=== PATIENT | female | born 2000 | race African-American/Black ===

== ENCOUNTER 2021-10-12 10:00 | Emergency (ER) | payer OTHER ==
[2021-10-12 10:08] VITALS: BP 108/71; PULSE 126; TEMP 98.7; BMI 31.6
[2021-10-12] MEDS ORDERED: ACETAMINOPHEN INJECTION 100 ML IVPB ONE (10:58)
[2021-10-12] MEDS ORDERED: ONDANSETRON 4 MG/2 ML VIAL ONE (10:58)
[2021-10-12] MEDS ORDERED: SODIUM CHLORIDE 0.9% 500 ML INFUS.BAG IV ONE ×2 (11:02→12:20)
[2021-10-12] MEDS ORDERED: ONDANSETRON 4 MG/2 ML VIAL IVPUSH ONE (11:03)
[2021-10-12] MEDS ORDERED: ACETAMINOPHEN 1000 MG/100 ML BAG IVPB ONE (11:03)
[2021-10-12 11:40] LABS: BASO % 0.3 % (0-2.0); HEMATOCRIT 40.3 % (32.4-45.2); HEMOGLOBIN 13.5 GM/dL (10.7-15.3); LYMPH % 4.2 % (8-40); MCHC 33.6 g/dl (32.0-36.0); MEAN CELL VOLUME 86.3 fl (80-96); MEAN PLT VOLUME 9.6 fl (7.5-11.1); MONO % 5.3 % (3.8-10.2); NEUT % 90.2 % (42.8-82.8); PLATELET COUNT 197 10^3/uL (134-434); RBC 4.67 M/mm3 (3.60-5.2); RDW 13.8 % (11.6-15.6); WHITE BLOOD COUNT 18.4 K/mm3 (4.0-10.0)
[2021-10-12 12:00] LABS: EPI CELLS >36 /uL (0-25.1); HYALINE CASTS 6 /uL (0-3.1); PH,URINE 5.5 (5.0-8.0); URINE APPEARANCE TURBID; URINE BACTERIA >9,000 /uL (0-1359); URINE BILIRUBIN 1+ (NEGATIVE); URINE COLOR DK YELLOW; URINE GLUCOSE (UA) NEGATIVE (NEGATIVE); URINE KETONE TRACE (NEGATIVE); URINE LEUK ESTERASE 1+ (NEGATIVE); URINE NITRITE POSITIVE (NEGATIVE); URINE PROTEIN 3+ (NEGATIVE); URINE RBC 27 /uL (0-23.9); URINE WBC 1167 /uL (0-25.8)
[2021-10-12 12:03] LABS: ALBUMIN 3.7 g/dl (3.4-5.0); BLOOD UREA NITROGEN 12.6 mg/dL (7-18); CALCIUM 8.9 mg/dL (8.5-10.1)
[2021-10-12 12:06] LABS: CREATININE 1.4 mg/dL (0.55-1.3)
[2021-10-12 12:08] LABS: BILIRUBIN,TOTAL 1.7 mg/dL (0.2-1); TOT PROT 8.1 g/dl (6.4-8.2)
[2021-10-12] MEDS ORDERED: CEFTRIAXONE 1 GM in DEXTROSE 5%-WATER - 100 ML IVPB ONE (12:16)
[2021-10-12] MEDS ORDERED: METOCLOPRAMIDE HCL INJECTION 10 MG/2 ML VIAL IVPUSH ONE (12:20)
[2021-10-12] MEDS ORDERED: CYCLOBENZAPRINE HCL 10 MG TABLET (FP) PO ONE (12:38)
[2021-10-12] MEDS ORDERED: KETOROLAC TROMETHAMINE 30 MG/1 ML VIAL IVPUSH ONE (12:44)
[2021-10-12] MEDS ORDERED: KETOROLAC TROMETHAMINE 30 MG/1 ML VIAL ONE (12:50)
[2021-10-12] MEDS ORDERED: METOCLOPRAMIDE HCL INJECTION 10 MG/2 ML VIAL ONE (12:50)
[2021-10-12] MEDS ORDERED: cefTRIAXone SODIUM 1 GM VIAL ONE (12:50)
[2021-10-12] MEDS ORDERED: CEFTRIAXONE 1 GM/50 ML BAG ONE (13:00)
== END 2021-10-12 16:55 | disposition home or self-care (01) ==
LOC: JER 10:00
PROC: 3E033GC Introduction of Other Therapeutic Substance into Peripheral Vein, Percutaneous Approach (ICD-10-PCS; principal; 2021-10-12)
DX: N12 Tubulo-interstitial nephritis, not specified as acute or chronic (principal); N39.0 Urinary tract infection, site not specified
CPT/HCPCS: 36415; 74176-TC; 80053; 81003; 83690; 84703; 85025; 87040; 87070; 87077; 87086; 87186; 87205; 87491; 87591; 99285-25

== ENCOUNTER 2021-10-13 15:02 | Emergency (ER) | payer OTHER ==
[2021-10-13 15:30] VITALS: BP 112/78; PULSE 99; TEMP 97.9; BMI 31.6
[2021-10-13] MEDS ORDERED: SODIUM CHLORIDE 0.9% 500 ML INFUS.BAG IV ONE (15:49)
[2021-10-13 16:50] LABS: BASO % 0.2 % (0-2.0); HEMATOCRIT 37.5 % (32.4-45.2); HEMOGLOBIN 12.6 GM/dL (10.7-15.3); LYMPH % 6.1 % (8-40); MCH 28.8 pg (25.7-33.7); MCHC 33.5 g/dl (32.0-36.0); MEAN PLT VOLUME 9.6 fl (7.5-11.1); MONO % 6.7 % (3.8-10.2); PLATELET COUNT 192 10^3/uL (134-434); RBC 4.37 M/mm3 (3.60-5.2); RDW 14.1 % (11.6-15.6); WHITE BLOOD COUNT 9.2 K/mm3 (4.0-10.0)
[2021-10-13 16:57] LABS: INR 1.32 (0.83-1.09); PROTHROMBIN TIME (PATIENT) 15.2 SEC (9.7-13.0)
[2021-10-13 16:59] LABS: ACTIVATED PTT 29.6 SECONDS (25.2-36.5)
[2021-10-13] MEDS ORDERED: METOCLOPRAMIDE HCL INJECTION 10 MG/2 ML VIAL IVPUSH ONE (17:03)
[2021-10-13 17:09] LABS: CHLORIDE 100 mmol/L (98-107); SODIUM 137 mmol/L (136-145)
[2021-10-13 17:11] LABS: ALBUMIN 3.2 g/dl (3.4-5.0); ANION GAP 10 MMOL/L (8-16); BLOOD UREA NITROGEN 10.2 mg/dL (7-18); CALCIUM 8.7 mg/dL (8.5-10.1); CO2 27 mmol/L (21-32)
[2021-10-13 17:12] LABS: GLUCOSE,RANDOM 104 mg/dL (74-106)
[2021-10-13 17:15] LABS: CREATININE 1.1 mg/dL (0.55-1.3); SGOT/AST 22 U/L (15-37); SGPT/ALT 32 U/L (13-61)
[2021-10-13 17:16] LABS: BILIRUBIN,TOTAL 1.5 mg/dL (0.2-1); TOT PROT 7.4 g/dl (6.4-8.2)
[2021-10-13] MEDS ORDERED: METOCLOPRAMIDE HCL INJECTION 10 MG/2 ML VIAL ONE (17:16)
[2021-10-13 17:17] LABS: ALK PHOS 92 U/L (45-117)
[2021-10-13 19:43] LABS: EPI CELLS >36 /uL (0-25.1); HYALINE CASTS 6 /uL (0-3.1); PH,URINE 6.5 (5.0-8.0); URINE APPEARANCE CLOUDY; URINE BACTERIA 779 /uL (0-1359); URINE BILIRUBIN 1+ (NEGATIVE); URINE COLOR DK YELLOW; URINE GLUCOSE (UA) NEGATIVE (NEGATIVE); URINE KETONE 1+ (NEGATIVE); URINE LEUK ESTERASE 2+ (NEGATIVE); URINE NITRITE NEGATIVE (NEGATIVE); URINE PROTEIN 2+ (NEGATIVE); URINE RBC 31 /uL (0-23.9); URINE UROBILINOGEN 4.0 E.U/dl mg/dL (0.2-1.0); URINE WBC 308 /uL (0-25.8)
== END 2021-10-13 20:42 | disposition home or self-care (01) ==
LOC: JER 15:02
PROC: 3E033GC Introduction of Other Therapeutic Substance into Peripheral Vein, Percutaneous Approach (ICD-10-PCS; principal; 2021-10-13)
PROC: 3E033NZ Introduction of Analgesics, Hypnotics, Sedatives into Peripheral Vein, Percutaneous Approach (ICD-10-PCS; 2021-10-13)
DX: N30.01 Acute cystitis with hematuria (principal)
CPT/HCPCS: 36415; 80053; 81003; 82550; 82553; 83605; 85025; 85610; 85730; 86850; 86900; 86901; 87040; 87086; 87186; 99284-25

== ENCOUNTER 2021-10-14 12:42 | Inpatient (IN) | payer OTHER ==
[2021-10-14] MEDS ORDERED: ACETAMINOPHEN 1000 MG/100 ML BAG IVPB ONE (13:27)
[2021-10-14] MEDS ORDERED: ONDANSETRON 4 MG/2 ML VIAL IVPUSH ONE (13:27)
[2021-10-14] MEDS ORDERED: LACTATED RINGERS SOLUTION 1000 ML INFUS.BAG IV ONE ×2 (13:27→16:31)
[2021-10-14] MEDS ORDERED: CEFTRIAXONE 1,000 MG in DEXTROSE 5%-WATER - 50 ML IVPB ONE (13:28)
[2021-10-14 13:53] LABS: BASO % 0.4 % (0-2.0); EOS % 0.3 % (0-4.5); HEMATOCRIT 34.6 % (32.4-45.2); HEMOGLOBIN 11.8 GM/dL (10.7-15.3); LYMPH % 9.3 % (8-40); MCHC 34.2 g/dl (32.0-36.0); MEAN CELL VOLUME 84.7 fl (80-96); MEAN PLT VOLUME 9.4 fl (7.5-11.1); MONO % 9.3 % (3.8-10.2); NEUT % 80.7 % (42.8-82.8); PLATELET COUNT 202 10^3/uL (134-434); RBC 4.08 M/mm3 (3.60-5.2); RDW 14.2 % (11.6-15.6); WHITE BLOOD COUNT 5.3 K/mm3 (4.0-10.0)
[2021-10-14] MEDS ORDERED: ONDANSETRON 4 MG/2 ML VIAL ONE (13:56)
[2021-10-14] MEDS ORDERED: ACETAMINOPHEN INJECTION 100 ML IVPB ONE ×2 (13:56→20:36)
[2021-10-14] MEDS ORDERED: cefTRIAXone SODIUM 1 GM VIAL ONE (13:56)
[2021-10-14 14:04] LABS: CALCIUM 8.5 mg/dL (8.5-10.1)
[2021-10-14 14:05] LABS: BLOOD UREA NITROGEN 6.6 mg/dL (7-18)
[2021-10-14 14:10] LABS: BILIRUBIN,TOTAL 1.1 mg/dL (0.2-1); TOT PROT 6.9 g/dl (6.4-8.2)
[2021-10-14 14:30] LABS: CREATININE 0.9 mg/dL (0.55-1.3)
[2021-10-14] MEDS ORDERED: METOCLOPRAMIDE HCL INJECTION 10 MG/2 ML VIAL IVPUSH ONE (16:31)
[2021-10-14] MEDS ORDERED: METOCLOPRAMIDE HCL INJECTION 10 MG/2 ML VIAL IVPUSH PRN (16:39)
[2021-10-14] MEDS ORDERED: MAG HYDROX/AL HYDROX/SIMETH 30 ML UNIT-DOSE CUP PO PRN (16:40)
[2021-10-14] MEDS ORDERED: METOCLOPRAMIDE HCL INJECTION 10 MG/2 ML VIAL ONE (16:51)
[2021-10-14] MEDS ORDERED: KCL 10 MEQ IVPB 10 MEQ/100 ML INFUS.BAG IVPB ONE ×3 (16:52→21:29)
[2021-10-14] MEDS: KCL 10 MEQ IVPB 10 MEQ/100 ML INFUS.BAG IVPB SCH ×3 (17:04→22:22)
[2021-10-14] MEDS: ACETAMINOPHEN 1000 MG/100 ML BAG IVPB PRN (20:40)
[2021-10-14] MEDS ORDERED: MELATONIN 5 MG TABLETS PO ONE (21:52)
[2021-10-14] MEDS ORDERED: MELATONIN 5 MG TABLETS ONE (22:14)
[2021-10-14 23:57] LABS: EPI CELLS >36 /uL (0-25.1); HYALINE CASTS 2 /uL (0-3.1); URINE APPEARANCE CLEAR; URINE BACTERIA 429 /uL (0-1359); URINE BILIRUBIN NEGATIVE (NEGATIVE); URINE COLOR DK YELLOW; URINE GLUCOSE (UA) NEGATIVE (NEGATIVE); URINE KETONE NEGATIVE (NEGATIVE); URINE LEUK ESTERASE TRACE (NEGATIVE); URINE NITRITE NEGATIVE (NEGATIVE); URINE PROTEIN 1+ (NEGATIVE); URINE RBC 37 /uL (0-23.9); URINE UROBILINOGEN >=8.0 E.U./dl mg/dL (0.2-1.0); URINE WBC 99 /uL (0-25.8)
[2021-10-15 01:58] VITALS: BMI 30.7
[2021-10-15] MEDS: ACETAMINOPHEN 1000 MG/100 ML BAG IVPB PRN (05:26)
[2021-10-15 09:30] LABS: BASO % 0.5 % (0-2.0); EOS % 0.3 % (0-4.5); HEMATOCRIT 34.7 % (32.4-45.2); HEMOGLOBIN 11.7 GM/dL (10.7-15.3); LYMPH % 22.1 % (8-40); MCH 28.7 pg (25.7-33.7); MCHC 33.8 g/dl (32.0-36.0); MEAN CELL VOLUME 85.1 fl (80-96); MEAN PLT VOLUME 9.4 fl (7.5-11.1); MONO % 16.5 % (3.8-10.2); NEUT % 60.6 % (42.8-82.8); PLATELET COUNT 236 10^3/uL (134-434); RBC 4.08 M/mm3 (3.60-5.2); RDW 14.4 % (11.6-15.6); WHITE BLOOD COUNT 3.7 K/mm3 (4.0-10.0)
[2021-10-15] MEDS ORDERED: CEFTRIAXONE 1 GM in DEXTROSE 5%-WATER - 50 ML IVPB SCH (10:00)
[2021-10-15] MEDS ORDERED: cefTRIAXone SODIUM 1 GM VIAL ONE ×2 (10:11→13:45)
[2021-10-15] MEDS ORDERED: DEXTROSE 5%-WATER - 50 ML IVPB ONE ×2 (10:11→13:45)
[2021-10-15] MEDS ORDERED: CEFTRIAXONE 1 GM in DEXTROSE 5%-WATER - 50 ML IVPB ONE ×2 (11:16→13:45)
[2021-10-15 12:19] LABS: CHLORIDE 106 mmol/L (98-107); SODIUM 140 mmol/L (136-145)
[2021-10-15 12:33] LABS: ALBUMIN 2.7 g/dl (3.4-5.0); ANION GAP 7 MMOL/L (8-16); CALCIUM 8.6 mg/dL (8.5-10.1); CO2 27 mmol/L (21-32); GLUCOSE,RANDOM 105 mg/dL (74-106)
[2021-10-15 12:36] LABS: CREATININE 0.7 mg/dL (0.55-1.3); SGOT/AST 60 U/L (15-37); SGPT/ALT 59 U/L (13-61)
[2021-10-15 12:37] LABS: TOT PROT 6.4 g/dl (6.4-8.2)
[2021-10-15 12:38] LABS: BILIRUBIN,TOTAL 0.9 mg/dL (0.2-1)
[2021-10-15 12:40] LABS: ALK PHOS 140 U/L (45-117); BLOOD UREA NITROGEN 2.7 mg/dL (7-18)
[2021-10-15] MEDS: ONDANSETRON 4 MG/2 ML VIAL IVPUSH PRN (14:02)
[2021-10-15 17:10] LABS: SARS-CoV-2 NAA Not Detected (Not Detected)
[2021-10-15] MEDS ORDERED: ACETAMINOPHEN 1000 MG/100 ML BAG IVPB ONE (22:59)
[2021-10-16 09:19] LABS: HEMATOCRIT 35.3 % (32.4-45.2); HEMOGLOBIN 11.8 GM/dL (10.7-15.3); MCH 28.3 pg (25.7-33.7); MCHC 33.3 g/dl (32.0-36.0); MEAN CELL VOLUME 84.9 fl (80-96); MEAN PLT VOLUME 9.7 fl (7.5-11.1); PLATELET COUNT 279 10^3/uL (134-434); RBC 4.16 M/mm3 (3.60-5.2); RDW 14.9 % (11.6-15.6)
[2021-10-16 09:31] LABS: CALCIUM 8.6 mg/dL (8.5-10.1)
[2021-10-16 09:32] LABS: ALBUMIN 2.8 g/dl (3.4-5.0); BLOOD UREA NITROGEN 4.6 mg/dL (7-18); MAGNESIUM 2.2 mg/dL (1.8-2.4)
[2021-10-16 09:35] LABS: CREATININE 0.8 mg/dL (0.55-1.3); PHOSPHOROUS 3.7 mg/dL (2.5-4.9)
[2021-10-16 09:36] LABS: BILIRUBIN,TOTAL 0.6 mg/dL (0.2-1); TOT PROT 6.4 g/dl (6.4-8.2)
[2021-10-16 09:53] LABS: ANISOCYTOSIS 0; HELMET CELLS 0; HOWELL-JOLLY BODIES 0; MACROCYTOSIS 0; OVALOCYTE 0; ROULEAU 0; SICKELED CELLS 0; TARGET CELLS 0; TEAR DROP CELLS 0; TOXIC GRANULATION 0
[2021-10-16] MEDS ORDERED: CEFTRIAXONE 2 GM in DEXTROSE 5%-WATER 100 ML IVPB SCH (10:00)
[2021-10-16] MEDS ORDERED: DEXTROSE 5%-WATER 100 ML IVPB ONE (10:09)
[2021-10-16] MEDS: ENOXAPARIN NA (PORCINE) 40 MG/0.4 ML DISP.SYRIN SQ SCH (10:11)
[2021-10-16 10:26] LABS: HIV INTERPRETATION NEGATIVE (NEGATIVE)
[2021-10-16] MEDS: SODIUM CHLORIDE 1,000 ML IV SCH (16:19)
[2021-10-16] MEDS: CEFAZOLIN 2 GM in DEXTROSE 5%-WATER - 50 ML IVPB SCH (17:29)
[2021-10-16] MEDS: ACETAMINOPHEN 325 MG TABLET (FP) PO PRN (20:49)
[2021-10-17] MEDS: SODIUM CHLORIDE 1,000 ML IV SCH ×3 (02:32→14:20)
[2021-10-17] MEDS: CEFAZOLIN 2 GM in DEXTROSE 5%-WATER - 100 ML IVPB SCH ×3 (02:53→17:18)
[2021-10-17] MEDS: CEFAZOLIN 2 GM in DEXTROSE 5%-WATER - 50 ML IVPB SCH (03:41)
[2021-10-17] MEDS: ACETAMINOPHEN 325 MG TABLET (FP) PO PRN ×2 (04:41→15:21)
[2021-10-17] MEDS: ONDANSETRON 4 MG/2 ML VIAL IVPUSH PRN (04:41)
[2021-10-17 08:06] LABS: BASO % 0.5 % (0-2.0); EOS % 1.5 % (0-4.5); HEMATOCRIT 35.7 % (32.4-45.2); HEMOGLOBIN 11.8 GM/dL (10.7-15.3); LYMPH % 29.1 % (8-40); MCH 28.2 pg (25.7-33.7); MEAN CELL VOLUME 85.5 fl (80-96); MEAN PLT VOLUME 9.8 fl (7.5-11.1); MONO % 14.5 % (3.8-10.2); NEUT % 54.4 % (42.8-82.8); PLATELET COUNT 335 10^3/uL (134-434); RBC 4.17 M/mm3 (3.60-5.2); RDW 14.7 % (11.6-15.6); WHITE BLOOD COUNT 5.3 K/mm3 (4.0-10.0)
[2021-10-17 08:18] LABS: CALCIUM 8.5 mg/dL (8.5-10.1)
[2021-10-17 08:19] LABS: ALBUMIN 2.8 g/dl (3.4-5.0); BLOOD UREA NITROGEN 4.8 mg/dL (7-18); MAGNESIUM 2.1 mg/dL (1.8-2.4)
[2021-10-17 08:22] LABS: CREATININE 0.7 mg/dL (0.55-1.3); PHOSPHOROUS 3.7 mg/dL (2.5-4.9)
[2021-10-17 08:23] LABS: TOT PROT 6.5 g/dl (6.4-8.2)
[2021-10-17 08:24] LABS: BILIRUBIN,TOTAL 0.6 mg/dL (0.2-1)
[2021-10-17] MEDS: ENOXAPARIN NA (PORCINE) 40 MG/0.4 ML DISP.SYRIN SQ SCH (09:30)
[2021-10-17] MEDS: ONDANSETRON 4 MG/2 ML VIAL IVPB PRN (18:58)
[2021-10-18] MEDS: CEFAZOLIN 2 GM in DEXTROSE 5%-WATER - 100 ML IVPB SCH ×3 (02:21→17:18)
[2021-10-18] MEDS: SODIUM CHLORIDE 1,000 ML IV SCH ×3 (02:23→15:25)
[2021-10-18 08:59] LABS: BASO % 0.5 % (0-2.0); EOS % 3.2 % (0-4.5); HEMATOCRIT 35.3 % (32.4-45.2); HEMOGLOBIN 11.8 GM/dL (10.7-15.3); LYMPH % 37.8 % (8-40); MCH 28.4 pg (25.7-33.7); MCHC 33.5 g/dl (32.0-36.0); MEAN CELL VOLUME 84.7 fl (80-96); MEAN PLT VOLUME 9.2 fl (7.5-11.1); MONO % 10.8 % (3.8-10.2); NEUT % 47.7 % (42.8-82.8); PLATELET COUNT 413 10^3/uL (134-434); RBC 4.17 M/mm3 (3.60-5.2); RDW 14.6 % (11.6-15.6); WHITE BLOOD COUNT 4.4 K/mm3 (4.0-10.0)
[2021-10-18] MEDS: ENOXAPARIN NA (PORCINE) 40 MG/0.4 ML DISP.SYRIN SQ SCH (09:26)
[2021-10-18 09:31] LABS: CALCIUM 8.8 mg/dL (8.5-10.1)
[2021-10-18 09:32] LABS: ALBUMIN 2.8 g/dl (3.4-5.0); BLOOD UREA NITROGEN 3.1 mg/dL (7-18); MAGNESIUM 2.1 mg/dL (1.8-2.4)
[2021-10-18 09:35] LABS: CREATININE 0.7 mg/dL (0.55-1.3); PHOSPHOROUS 4.2 mg/dL (2.5-4.9)
[2021-10-18 09:36] LABS: BILIRUBIN,TOTAL 0.8 mg/dL (0.2-1)
[2021-10-18 09:37] LABS: TOT PROT 6.6 g/dl (6.4-8.2)
[2021-10-19] MEDS: CEFAZOLIN 2 GM in DEXTROSE 5%-WATER - 100 ML IVPB SCH ×2 (03:02→09:52)
[2021-10-19] MEDS: SODIUM CHLORIDE 1,000 ML IV SCH (04:41)
[2021-10-19] MEDS: ONDANSETRON 4 MG/2 ML VIAL IVPB PRN (08:00)
[2021-10-19] MEDS: ENOXAPARIN NA (PORCINE) 40 MG/0.4 ML DISP.SYRIN SQ SCH (09:52)
[2021-10-19 11:31] LABS: BASO % 0.5 % (0-2.0); EOS % 3.4 % (0-4.5); HEMOGLOBIN 12.1 GM/dL (10.7-15.3); LYMPH % 44.5 % (8-40); MCH 28.7 pg (25.7-33.7); MCHC 33.7 g/dl (32.0-36.0); MEAN CELL VOLUME 85.1 fl (80-96); MEAN PLT VOLUME 8.7 fl (7.5-11.1); MONO % 8.1 % (3.8-10.2); NEUT % 43.5 % (42.8-82.8); PLATELET COUNT 486 10^3/uL (134-434); RBC 4.23 M/mm3 (3.60-5.2); RDW 14.7 % (11.6-15.6); WHITE BLOOD COUNT 4.2 K/mm3 (4.0-10.0)
[2021-10-19 11:41] LABS: BLOOD UREA NITROGEN 3.6 mg/dL (7-18); CALCIUM 9.2 mg/dL (8.5-10.1); MAGNESIUM 2.3 mg/dL (1.8-2.4)
[2021-10-19 11:44] LABS: CREATININE 0.9 mg/dL (0.55-1.3); PHOSPHOROUS 3.3 mg/dL (2.5-4.9)
[2021-10-19 11:46] LABS: BILIRUBIN,TOTAL 0.5 mg/dL (0.2-1)
[2021-10-19 14:06] VITALS: BP 120/88; PULSE 82; TEMP 98.3
== END 2021-10-19 15:39 | disposition home or self-care (01) | DRG 463 ==
LOC: JER 12:42 → JERBED 14:45 → J6S 10-15 01:21 → OBSVTOIN 10-16 10:13
PROVIDERS: ADMIT Internal Medicine; ATTEND Internal Medicine
DX: N39.0 Urinary tract infection, site not specified (principal); R78.81 Bacteremia; E87.6 Hypokalemia; R11.0 Nausea
CPT/HCPCS: 36415; 76705-TC; 80053; 81003; 83735; 84100; 85025; 87040; 87077; 87086; 87389; 93306-TC; 99285-25; C9803-CS; G0378; U0003; U0005

== ENCOUNTER 2022-07-31 08:57 | Emergency (ER) | payer OTHER ==
[2022-07-31 09:07] VITALS: BP 121/81; PULSE 70; RESP 20; TEMP 98.6; BMI 25.0
[2022-07-31] MEDS ORDERED: LIDOCAINE 5% TOPICAL PATCH ONE (09:44)
[2022-07-31 12:51] LABS: BASO % 0.5 % (0-2.0); EOS % 2.1 % (0-4.5); HEMATOCRIT 36.5 % (32.4-45.2); HEMOGLOBIN 12.3 GM/dL (10.7-15.3); MCH 29.8 pg (25.7-33.7); MCHC 33.6 g/dl (32.0-36.0); MEAN CELL VOLUME 88.7 fl (80-96); MEAN PLT VOLUME 9.4 fl (7.5-11.1); MONO % 7.4 % (3.8-10.2); PLATELET COUNT 268 10^3/uL (134-434); RBC 4.11 M/mm3 (3.60-5.2); RDW 14.7 % (11.6-15.6); WHITE BLOOD COUNT 4.8 K/mm3 (4.0-10.0)
[2022-07-31 13:06] LABS: CHLORIDE 103 mmol/L (98-107); SODIUM 135 mmol/L (136-145)
[2022-07-31 13:08] LABS: CALCIUM 9.2 mg/dL (8.5-10.1)
[2022-07-31 13:09] LABS: ANION GAP 5 MMOL/L (8-16); BLOOD UREA NITROGEN 10.9 mg/dL (7-18); CO2 27 mmol/L (21-32); GLUCOSE,RANDOM 89 mg/dL (74-106)
[2022-07-31 13:11] LABS: CREATININE 0.7 mg/dL (0.55-1.3); SGOT/AST 17 U/L (15-37); SGPT/ALT 23 U/L (13-61)
[2022-07-31 13:14] LABS: BILIRUBIN,TOTAL 0.8 mg/dL (0.2-1); TOT PROT 7.5 g/dl (6.4-8.2)
[2022-07-31 13:15] LABS: ALK PHOS 56 U/L (45-117)
== END 2022-07-31 11:15 | disposition left against medical advice (07) ==
LOC: JER 08:57
DX: R55 Syncope and collapse (principal)
CPT/HCPCS: 36415; 80053; 82962; 84484; 85025; 93005; 93010; 99284-25

== ENCOUNTER 2022-12-23 21:43 | Emergency (ER) | payer OTHER ==
[2022-12-23 21:55] VITALS: RESP 18; BMI 28.3
[2022-12-23] MEDS ORDERED: ONDANSETRON 4 MG/2 ML VIAL IVPUSH ONE (23:53)
[2022-12-24] MEDS ORDERED: DEXTROSE 5%-NORMAL SALINE 1,000 ML IV ONE (00:03)
[2022-12-24] MEDS ORDERED: ONDANSETRON 4 MG/2 ML VIAL ONE (00:41)
[2022-12-24 00:51] VITALS: BP 113/74; PULSE 57; TEMP 98.4
[2022-12-24 01:35] LABS: BASO % 0.2 % (0-2.0); EOS % 0.3 % (0-4.5); HEMATOCRIT 35.5 % (32.4-45.2); LYMPH % 38.6 % (8-40); MCH 29.4 pg (25.7-33.7); MCHC 33.9 g/dl (32.0-36.0); MEAN CELL VOLUME 86.8 fl (80-96); MEAN PLT VOLUME 9.6 fl (7.5-11.1); MONO % 5.6 % (3.8-10.2); NEUT % 55.3 % (42.8-82.8); PLATELET COUNT 246 10^3/uL (134-434); RBC 4.09 M/mm3 (3.60-5.2); RDW 13.3 % (11.6-15.6); WHITE BLOOD COUNT 4.9 K/mm3 (4.0-10.0)
[2022-12-24 01:55] LABS: POTASSIUM 3.8 mmol/L (3.5-5.1)
[2022-12-24 01:57] LABS: ALBUMIN 3.9 g/dl (3.4-5.0); BLOOD UREA NITROGEN 6.7 mg/dL (7-18); CALCIUM 9.3 mg/dL (8.5-10.1)
[2022-12-24 02:00] LABS: CREATININE 0.7 mg/dL (0.55-1.3)
[2022-12-24 02:02] LABS: BILIRUBIN,TOTAL 0.4 mg/dL (0.2-1); TOT PROT 7.3 g/dl (6.4-8.2)
== END 2022-12-24 02:50 | disposition home or self-care (01) ==
LOC: JER 21:43
PROC: 3E033GC Introduction of Other Therapeutic Substance into Peripheral Vein, Percutaneous Approach (ICD-10-PCS; principal; 2022-12-24)
DX: O21.0 Mild hyperemesis gravidarum (principal); O26.891 Other specified pregnancy related conditions, first trimester; R10.84 Generalized abdominal pain; R50.9 Fever, unspecified; O99.611 Diseases of the digestive system complicating pregnancy, first trimester; K59.00 Constipation, unspecified; Z3A.01 Less than 8 weeks gestation of pregnancy
CPT/HCPCS: 36415; 76817-TC; 80053; 84702; 85025; 99284-25

== ENCOUNTER 2023-01-27 12:18 | Emergency (ER) | payer OTHER ==
[2023-01-27 12:28] VITALS: BP 114/80; PULSE 96; RESP 16; TEMP 98.2; BMI 23.3
[2023-01-27] MEDS ORDERED: ACETAMINOPHEN 1000 MG/100 ML BAG IVPB ONE (13:23)
[2023-01-27] MEDS ORDERED: DEXTROSE 5%-NORMAL SALINE 1,000 ML IV ONE (13:26)
[2023-01-27] MEDS ORDERED: SODIUM CHLORIDE 0.9% 500 ML INFUS.BAG IV ONE (13:33)
[2023-01-27] MEDS ORDERED: ACETAMINOPHEN INJECTION 100 ML IVPB ONE (13:34)
[2023-01-27] MEDS ORDERED: FOLIC ACID INJECTION - 1 MG, THIAMINE HCL 100 MG, MULTIVIT INJECTION ADULT 10 ML in SOD... IVPB ONE (13:34)
[2023-01-27 14:08] LABS: BASO % 0.4 % (0-2.0); EOS % 0.2 % (0-4.5); HEMATOCRIT 38.1 % (32.4-45.2); HEMOGLOBIN 13.2 GM/dL (10.7-15.3); LYMPH % 28.5 % (8-40); MCH 29.2 pg (25.7-33.7); MCHC 34.5 g/dl (32.0-36.0); MEAN CELL VOLUME 84.7 fl (80-96); MONO % 7.3 % (3.8-10.2); NEUT % 63.6 % (42.8-82.8); PLATELET COUNT 278 10^3/uL (134-434); RDW 13.9 % (11.6-15.6)
[2023-01-27] MEDS ORDERED: ONDANSETRON 4 MG/2 ML VIAL IVPUSH ONE (14:10)
[2023-01-27] MEDS ORDERED: ONDANSETRON 4 MG/2 ML VIAL ONE (14:13)
[2023-01-27 14:31] LABS: POTASSIUM 4.5 mmol/L (3.5-5.1)
[2023-01-27 14:33] LABS: CALCIUM 9.6 mg/dL (8.5-10.1)
[2023-01-27 14:34] LABS: ALBUMIN 3.5 g/dl (3.4-5.0); BLOOD UREA NITROGEN 8.3 mg/dL (7-18); MAGNESIUM 2.1 mg/dL (1.8-2.4)
[2023-01-27 14:37] LABS: CREATININE 0.6 mg/dL (0.55-1.3)
[2023-01-27 14:38] LABS: BILIRUBIN,TOTAL 0.7 mg/dL (0.2-1); TOT PROT 7.8 g/dl (6.4-8.2)
[2023-01-27 16:11] LABS: EPI CELLS >36 /uL (0-25.1); HYALINE CASTS 3 /uL (0-3.1); PH,URINE 6.5 (5.0-8.0); URINE APPEARANCE CLEAR; URINE BACTERIA 712 /uL (0-1359); URINE BILIRUBIN NEGATIVE (NEGATIVE); URINE COLOR DK YELLOW; URINE GLUCOSE (UA) NEGATIVE (NEGATIVE); URINE KETONE 2+ (NEGATIVE); URINE LEUK ESTERASE NEGATIVE (NEGATIVE); URINE NITRITE NEGATIVE (NEGATIVE); URINE PROTEIN 1+ (NEGATIVE); URINE RBC 15 /uL (0-23.9); URINE WBC 47 /uL (0-25.8)
[2023-01-27] MEDS ORDERED: CEPHALEXIN MONOHYDRATE 500 MG CAPSULE (UD) PO ONE (17:08)
== END 2023-01-27 17:41 | disposition home or self-care (01) ==
LOC: JER 12:18
PROC: 3E033GC Introduction of Other Therapeutic Substance into Peripheral Vein, Percutaneous Approach (ICD-10-PCS; principal; 2023-01-27)
PROC: 3E033GC Introduction of Other Therapeutic Substance into Peripheral Vein, Percutaneous Approach (ICD-10-PCS; 2023-01-27)
PROC: 3E033GC Introduction of Other Therapeutic Substance into Peripheral Vein, Percutaneous Approach (ICD-10-PCS; 2023-01-27)
PROC: 3E0337Z Introduction of Electrolytic and Water Balance Substance into Peripheral Vein, Percutaneous Approach (ICD-10-PCS; 2023-01-27)
DX: O21.0 Mild hyperemesis gravidarum (principal); O26.891 Other specified pregnancy related conditions, first trimester; R10.84 Generalized abdominal pain; R42 Dizziness and giddiness; Z3A.13 13 weeks gestation of pregnancy
CPT/HCPCS: 36415; 76815; 80053; 81003; 83735; 84484; 85025; 93005; 93010; 93308; 99285-25

== ENCOUNTER 2023-04-13 13:43 | Emergency (ER) | payer OTHER ==
[2023-04-13 14:05] VITALS: BMI 29.2
[2023-04-13] MEDS ORDERED: SODIUM CHLORIDE 0.9% 1000 ML INFUS.BAG IV ONE (14:27)
[2023-04-13 14:48] LABS: BASO % 0.3 % (0-2.0); EOS % 0.4 % (0-4.5); HEMATOCRIT 32.8 % (32.4-45.2); MCH 29.7 pg (25.7-33.7); MCHC 33.7 g/dl (32.0-36.0); MEAN CELL VOLUME 88.3 fl (80-96); MEAN PLT VOLUME 9.6 fl (7.5-11.1); MONO % 7.8 % (3.8-10.2); NEUT % 66.5 % (42.8-82.8); PLATELET COUNT 221 10^3/uL (134-434); RBC 3.72 M/mm3 (3.60-5.2); RDW 14.4 % (11.6-15.6); WHITE BLOOD COUNT 6.1 K/mm3 (4.0-10.0)
[2023-04-13 15:13] LABS: POTASSIUM 4.2 mmol/L (3.5-5.1)
[2023-04-13 15:15] LABS: CALCIUM 8.6 mg/dL (8.5-10.1)
[2023-04-13 15:16] LABS: BLOOD UREA NITROGEN 7.1 mg/dL (7-18)
[2023-04-13 15:19] LABS: CREATININE 0.6 mg/dL (0.55-1.3)
[2023-04-13 15:20] LABS: BILIRUBIN,TOTAL 0.4 mg/dL (0.2-1); TOT PROT 6.6 g/dl (6.4-8.2)
[2023-04-13 15:25] VITALS: BP 113/71; PULSE 69; RESP 16; TEMP 98.4
[2023-04-13 16:21] LABS: EPI CELLS >36 /uL (0-25.1); HYALINE CASTS 2 /uL (0-3.1); URINE APPEARANCE CLEAR; URINE BACTERIA 1168 /uL (0-1359); URINE BILIRUBIN NEGATIVE (NEGATIVE); URINE COLOR YELLOW; URINE GLUCOSE (UA) NEGATIVE (NEGATIVE); URINE KETONE NEGATIVE (NEGATIVE); URINE LEUK ESTERASE 2+ (NEGATIVE); URINE NITRITE NEGATIVE (NEGATIVE); URINE PROTEIN NEGATIVE (NEGATIVE); URINE RBC 3 /uL (0-23.9); URINE WBC 135 /uL (0-25.8)
== END 2023-04-13 17:45 | disposition home or self-care (01) ==
LOC: JER 13:43
DX: O99.891 Other specified diseases and conditions complicating pregnancy (principal); R55 Syncope and collapse; M54.50 Low back pain, unspecified; M25.562 Pain in left knee; O26.892 Other specified pregnancy related conditions, second trimester; R10.9 Unspecified abdominal pain; O21.9 Vomiting of pregnancy, unspecified; Z3A.23 23 weeks gestation of pregnancy
CPT/HCPCS: 0241U-QW; 36415; 76801-TC; 76815; 80053; 81003; 82962; 84484; 85025; 93005; 93010; 99285-25

== ENCOUNTER 2023-07-12 17:14 | Emergency (ER) | payer OTHER ==
[2023-07-12 17:22] VITALS: BP 114/76; PULSE 84; RESP 18; TEMP 98.1; BMI 32.1
== END 2023-07-12 18:00 | disposition left against medical advice (07) ==
LOC: JER 17:14
DX: O26.893 Other specified pregnancy related conditions, third trimester (principal); R10.30 Lower abdominal pain, unspecified; O21.9 Vomiting of pregnancy, unspecified; Z3A.36 36 weeks gestation of pregnancy
CPT/HCPCS: 99283-25

== ENCOUNTER 2023-11-18 10:44 | Emergency (ER) | payer SELFPAY ==
[2023-11-18 10:50] VITALS: BMI 30.7
[2023-11-18] MEDS ORDERED: ACETAMINOPHEN INJECTION 100 ML IVPB ONE (11:41)
[2023-11-18] MEDS: ACETAMINOPHEN 1000 MG/100 ML BAG IVPB ONE (11:54)
[2023-11-18 11:58] LABS: BASO % 0.2 % (0-2.0); EOS % 0.6 % (0-4.5); HEMATOCRIT 36.9 % (32.4-45.2); HEMOGLOBIN 12.8 GM/dL (10.7-15.3); LYMPH % 33.2 % (8-40); MCH 29.7 pg (25.7-33.7); MCHC 34.7 g/dl (32.0-36.0); MEAN CELL VOLUME 85.6 fl (80-96); MEAN PLT VOLUME 8.9 fl (7.5-11.1); MONO % 6.9 % (3.8-10.2); NEUT % 59.1 % (42.8-82.8); PLATELET COUNT 274 10^3/uL (134-434); RBC 4.31 M/mm3 (3.60-5.2); RDW 13.4 % (11.6-15.6); WHITE BLOOD COUNT 3.8 K/mm3 (4.0-10.0)
[2023-11-18 12:12] LABS: INR 1.07 (0.83-1.09); PROTHROMBIN TIME (PATIENT) 12.3 SEC (9.7-13.0)
[2023-11-18 12:14] LABS: ACTIVATED PTT 30.8 SECONDS (25.2-36.5)
[2023-11-18 12:32] LABS: CALCIUM 9.5 mg/dL (8.5-10.1)
[2023-11-18 12:33] LABS: BLOOD UREA NITROGEN 8.9 mg/dL (7-18)
[2023-11-18 12:36] LABS: CREATININE 0.9 mg/dL (0.55-1.3)
[2023-11-18 12:38] LABS: BILIRUBIN,TOTAL 0.7 mg/dL (0.2-1); TOT PROT 7.8 g/dl (6.4-8.2)
[2023-11-18 13:24] LABS: ALBUMIN 4.1 g/dl (3.4-5.0)
[2023-11-18] MEDS ORDERED: KETOROLAC TROMETHAMINE 15 MG/ML VIAL IVPUSH ONE (13:46)
[2023-11-18 14:01] VITALS: BP 120/72; PULSE 77; RESP 19; TEMP 97.9
== END 2023-11-18 14:01 | disposition home or self-care (01) ==
LOC: JER 10:44
PROC: 3E033NZ Introduction of Analgesics, Hypnotics, Sedatives into Peripheral Vein, Percutaneous Approach (ICD-10-PCS; principal; 2023-11-18)
DX: R07.89 Other chest pain (principal); Z20.822 Contact with and (suspected) exposure to COVID-19
CPT/HCPCS: 0241U-QW; 36415; 71045-TC-FY; 80053; 84484; 84703; 85025; 85379; 85610; 85730; 86850; 86900; 86901; 93005; 93010; 99285-25; J0131